=== PATIENT | female | born 1990 | race Caucasian/White ===

== ENCOUNTER → 2019-04-04 | Day surgery (SDC) | payer BC ==
[2019-04-01 11:56] VITALS: BMI 25.8
[2019-04-04 13:21] VITALS: BP 128/71; PULSE 60; RESP 16; TEMP 98.4
== END ==
LOC: ORWHC2ENDO 13:06
PROVIDERS: ATTEND Internal Medicine Gastroenterology
DX: R13.10 Dysphagia, unspecified (principal)
CPT/HCPCS: 91037

== ENCOUNTER → 2021-03-25 | Outpatient (CLI) | payer BC ==
--- NOTE | 2021-03-25 15:43 | FL ---
Fluoroscopic hysterosalpingogram INDICATION: Bicornuate uterus COMPARISON: None The risks, benefits and alternatives were explained to the patient and consent was obtained. Total fl uoroscopic time 31 seconds. FINDINGS: Patient was placed in the lithotomy position on the fluoroscopic table and cervix was visualized with a speculum. The cervix was cleaned with Betadine. Small catheter was inserted through the cervix int o the uterus and a balloon was inflated with air. Speculum was removed. A 5 mL of radiopaque contrast was administered into the catheter. The uterine contour demonstrates focal outpouching at its superior edge due to the catheter tip but i s otherwise unremarkable. The bilateral fallopian tubes filled with contrast with spillage noted bilaterally into the pelvis. The air within the balloon of the catheter was aspirated and the catheter was removed. Patient tolerated the examination well without immediate complication. IMPRESSION: Unremarkable uterine contour. If there is clinical concern for septate uterus, ultrasound or MRI coul d be obtained. Patent fallopian tubes bilaterally.
== END | disposition home or self-care (01) ==
LOC: RADUSWWP 13:29
PROVIDERS: ATTEND Obstetrics & Gynecology Obstetrics
DX: Q51.3 Bicornate uterus (principal)
CPT/HCPCS: 58340; 74740; Q9966

== ENCOUNTER 2022-02-13 01:47 | Inpatient (IN) | payer BC ==
[2022-02-13] MEDS ORDERED: OXYTOCIN 10 UNIT/ML 1 ML VIAL IM PRN (02:15)
[2022-02-13] MEDS ORDERED: LIDOCAINE 0.5% (PF) 5 MG/ML (50 ML SDV) SQ PRN (02:15)
[2022-02-13] MEDS ORDERED: CARBOPROST TROMETHAMINE 250 MCG/ML 1 ML AMP IM PRN (02:15)
[2022-02-13] MEDS ORDERED: OXYTOCIN 30 UNITS/500 ML NS 30 UNIT in SALINE 1 500ML.BAG IV SCH ×2 (02:15→07:15)
[2022-02-13] MEDS ORDERED: TERBUTALINE 1 MG/ML VIAL SQ PRN (02:15)
[2022-02-13] MEDS ORDERED: METHYLERGONOVINE 0.2 MG/ML 1 ML AMP IM PRN (02:15)
[2022-02-13 02:48] LABS: Basophils % (A) 0 %; Eosinophils # (A) 0.2 k/uL (0-0.7); Eosinophils % (A) 3 %; HCT 40.2 % (34.0-46.0); HGB 13.4 gm/dL (11.4-16.0); Lymphocytes # (A) 1.5 k/uL (1.0-4.8); Lymphocytes % (A) 16 %; MCH 30.6 pg (25.0-35.0); MCHC 33.3 g/dL (31.0-37.0); MCV 91.9 fL (80.0-100.0); Mean Platelet Volume 8.2; Monocytes # (A) 0.6 k/uL (0-1.0); Monocytes % (A) 6 %; Neutrophils # (A) 6.9 k/uL (1.3-7.7); Neutrophils % (A) 72 %; Platelet Count 189 k/uL (150-450); RBC 4.37 m/uL (3.80-5.40); RDW 13.2 % (11.5-15.5); WBC 9.5 k/uL (3.8-10.6)
[2022-02-13] MEDS: LACTATED RINGERS 1,000 ML IV SCH ×3 (02:53→19:36)
[2022-02-13] MEDS ORDERED: CITRIC ACID-SODIUM CITRATE 15 ML CUP PO ONE ×2 (05:52→05:53)
[2022-02-13] MEDS ORDERED: OXYTOCIN 30 UNITS/500 ML NS BAG IV ONE (06:07)
[2022-02-13] MEDS ORDERED: MORPHINE SULFATE (PF) 0.3 MG/0.3 ML SYR ONE (06:07)
[2022-02-13] MEDS ORDERED: ONDANSETRON 4 MG/2 ML VIAL ONE (06:07)
--- NOTE | 2022-02-13 07:02 | P.OP ---
Date of Procedure: 02/13/22 Preoperative Diagnosis: IUP at 40 and 0/7 weeks, spontaneous rupture of membranes, active labor, arrest of descent, nonreassuring heart tones Postoperative Diagnosis: same Procedure(s) Performed: primary low transverse section Anesthesia: spinal Surgeon: Angela Stallings Business Ethics Professor #1: Meghna Sherman Estimated Blood Loss (ml): 665 IV fluids (ml): 600 Urine output (ml): 500 Pathology: other (placenta) Condition: stable Disposition: observation Indications for Procedure: 31-year-old at 40-0/7 weeks that progressed to complete dilation and began pushing. Patient has been pushing for approximately 2 hours with no descent. heart tones are noted to be in the 90s with no return to baseline. Exam and heart tones are discussed with the patient in the patient's sign ificant other. Need for primary secondary to nonreassuring heart tones and arrest of descent are discussed. Questions are answered. Patient states understanding and is in agreement with the plan. We'll proceed to operating suite. Anesthesia is notified. Operative Findings: viable male infant delivered at 631, weight of 8 lbs. 11 oz., Apgars of 8 and 9 at one and 5 minutes respectively. Infant noted to be in occiput transverse presentation with significant But appreciated upon delivery. Arcuate-shaped uterus was appreciated with normal tubes and ovaries. Description of Procedure: patient was taken back to the operating suite where spinal anesthesia was found be adequate by the anesthesia department. She was prepped and draped in normal sterile fashion in the dorsal supine position a Pfannenstiel skin incision was made the scalpel and carried through the underlying layer of fascia. The fascia was incised in the midline and extended laterally. The superior aspect the fascial incision was then grasped michael clamps, elevated and underlying rectus muscles dissected off sharply. The inferior aspect of the fascial incision was then grasped michael clamps, elevated and underlying rectus muscles dissected off sharply. Rectus muscles were in the midline the peritoneum was identified and entered. This incision was then extended superiorly and inferiorly with good visualization the bladder. The bladder blade was then inserted into the pelvis. The vesicouterine peritoneum was identified and a bladder flap was created using sharp and blunt dissection. The bladder blade was then reinserted into the pelvis to push the bladder far away from the operating field. A scalpel was used to make a hysterotomy incision the was encountered in a vertex presentation with clear fluid appreciated. The infant was delivered in the usual fashion the umbilical cords CLAMPED and cut and handed off to awaiting RN, spontaneous cry was noted at . The cord blood was then taken. The placenta was delivered manually and the uterus was cleared of all clots and debris. The uterus was delivered from the abdomen, the hysterotomy incision was closed 0 Vicryl in a running locked fashion a second inverting suture was performed. Bleeding was noted on the left-hand side therefore a [id number] suture was used to obtain hemostasis. The uterus was returned to the abdomen and the gutters were cleared of all clots and debris. The hysterotomy incision was inspected found to be hemostatic. The rec tus muscle was inspected and found to be hemostatic. The fascia was then closed with 0 Vicryl in a running fashion from one lateral edge the midline and the other lateral edge the midline. The subcutaneous tissue was noted to be hemostatic and closed with 3-0 Vicryl. The skin was closed with 4-0 Vicryl in a subcu fashion. Steri-Strips and sterile dressings were applied. All counts were noted to be correct 2 at the end of the procedure. Patient and tolerated delivery well and are resting comfortable he.
[2022-02-13] MEDS ORDERED: NALOXONE 0.4 MG/ML 1 ML VIAL IV PRN (07:03)
[2022-02-13] MEDS ORDERED: ZOLPIDEM 5 MG TAB PO PRN (07:03)
[2022-02-13] MEDS ORDERED: SIMETHICONE 80 MG CHEWABLE PO PRN (07:03)
[2022-02-13] MEDS ORDERED: METOCLOPRAMIDE 5 MG/ML 2 ML VIAL IVP PRN (07:03)
[2022-02-13] MEDS ORDERED: diphenhydrAMINE 50 MG/ML 1 ML VIAL IVP PRN ×2 (07:03)
[2022-02-13] MEDS ORDERED: ONDANSETRON 4 MG/2 ML VIAL IVP PRN (07:03)
[2022-02-13] MEDS ORDERED: diphenhydrAMINE 50 MG CAP PO PRN (07:03)
[2022-02-13] MEDS ORDERED: diphenhydrAMINE 25 MG CAP PO PRN (07:03)
--- NOTE | 2022-02-13 07:03 | P.HPOB ---
History of Present Illness H&P Date: 02/13/22 Chief Complaint: IUP @ 40 0/7 weeks, labor, SROM this is a 31-year-old 1 para 0 at 40-3/7 weeks that presents to labor and delivery with complaints of regular painful contractions and spontaneous rupture of membranes. She patient states fluid was clear in nature. she notes good movement. Patient has been receiving routine care which has been essentially and Dated. Patient did have an ultrasound proximal I 3 weeks' revealing an estimated weight of 7 lbs. 12 oz. or 91st percentile. Patient declined induction of labor at 39 weeks given this finding of suspected LGA. on bloodwork this patient is a blood type of O+, rubella status immune, B surface antigen negative, HIV negative, RPR nonreactive, group beta strep culture was negative. Review of Systems Constitutional: Denies chills, Denies fatigue, Denies fever Ears, nose, mouth and throat: Denies headache Cardiovascular: Reports leg edema Respiratory: Denies dyspnea Gastrointestinal: Denies constipation, Denies diarrhea, Denies nausea, Denies vomiting Genitourinary: Reports Past Medical History Past Medical History: Asthma Additional Past Medical History / Comment(s): asthma as child, esophageal spasms, diff swallowing, hx kidney stones History of Any Multi-Drug Resistant Organisms: None Reported Additional Past Surgical History / Comment(s): oral surgery Past Anesthesia/Blood Transfusion Reactions: No Reported Reaction Past Psychological History: Anxiety, Depression Smoking Status: Never smoker Past Alcohol Use History: None Reported Past Drug Use History: None Reported Additional Drug Use History / Comment(s): CBD before - Past Family History Mother Family Medical History: No Reported History Medications and Allergies Home Medications Medication Instructions Recorded Confirmed Type Aspirin 81 mg PO DAILY 02/13/22 02/13/22 History Vit No.179/Iron/Folic 1 each PO DAILY 02/13/22 02/13/22 History [ Tablet] Allergies Allergy/AdvReac Type Severity Reaction Status Date / Time beans Allergy Dyspnea Uncoded 02/13/22 02:10 Exam Osteopathic Statement: *. No significant issues noted on an osteopathic structural exam other than those noted in the History and Physical/Consult. Vital Signs Pulse Resp BP 02/13/22 02:30 58 L 16 141/81 Intake and Output 02/12/22 02/12/22 02/13/22 14:59 22:59 06:59 Other: Weight 93.44 kg targeted physical exam is performed in this date and this a well-nourished well- developed female in no acute distress, breathing is nonlabored, heart has a regular rate and rhythm, abdomen is gravid and large for gestational age, on cervical exam she is 7/100/-1 station with grossly ruptured membranes per RN. heart tones noted to be category 1 and she is interacting every 2 mi nutes. Results Result Diagrams: 02/13/22 02:25 Assessment and Plan (1) Term Current Visit: Yes Status: Acute Code(s): Z34.90 - ENCNTR FOR SUPRVSN OF NORMAL , UNSP, UNSP TRIMESTER SNOMED Code(s): 03918473 (2) SROM (spontaneous rupture of membranes) Current Visit: Yes Status: Acute Code(s): LEI5603 - SNOMED Code(s): 854240088 (3) Active labor Current Visit: Yes Status: Acute Code(s): WPG8254 - SNOMED Code(s): 040891640 Plan: 31-year-old at 40-0/7 weeks presented with complaints of regular painful contractions. Patient was noted to be 7 cm and grossly ruptured. Patient is admitted to labor and delivery with expectant management. Patient declines epidural. We'll continue close monitoring.
[2022-02-13] MEDS: ACETAMINOPHEN IV (For NPO) 1,000 MG in EMPTY BAG 1 BAG IVPB SCH ×2 (10:00→19:38)
[2022-02-13] MEDS: IBUPROFEN 600 MG TAB PO SCH ×3 (19:35→23:29)
[2022-02-13] MEDS: PRENATAL VIT-IRON-FOLIC ACID 1 EACH TABLET PO SCH (19:35)
[2022-02-13] MEDS: ACETAMINOPHEN TAB 500 MG TAB PO SCH ×2 (19:35→19:45)
[2022-02-13] MEDS: IBUPROFEN IV 800 MG in SODIUM CHLORIDE 0.9% 250 ML IV SCH ×2 (19:35→23:58)
[2022-02-13] MEDS: SENNOSIDES-DOCUSATE SODIUM 1 EACH TAB PO SCH ×2 (19:35→19:45)
[2022-02-14] MEDS: IBUPROFEN IV 800 MG in SODIUM CHLORIDE 0.9% 250 ML IV SCH ×3 (03:41→22:08)
[2022-02-14] MEDS: LACTATED RINGERS 1,000 ML IV SCH (03:51)
[2022-02-14] MEDS: ACETAMINOPHEN TAB 500 MG TAB PO SCH ×3 (04:07→22:06)
--- NOTE | 2022-02-14 06:21 | P.PN ---
Progress Note - Text 02/14/22 605am 31-year-old female status post with spinal Duramorph. Patient seen and evaluated for postop pain control, patient has a VAS of 4, patient has been receiving Tylenol and Motrin periodically. Complains of minor pruritus. No other anesthetic concerns noted
[2022-02-14 06:56] LABS: Basophils % (A) 0 %; Eosinophils # (A) 0.1 k/uL (0-0.7); Eosinophils % (A) 1 %; HCT 35.4 % (34.0-46.0); HGB 11.4 gm/dL (11.4-16.0); Lymphocytes % (A) 9 %; MCH 29.9 pg (25.0-35.0); MCHC 32.2 g/dL (31.0-37.0); Mean Platelet Volume 8.2; Monocytes # (A) 0.5 k/uL (0-1.0); Monocytes % (A) 5 %; Neutrophils # (A) 9.1 k/uL (1.3-7.7); Neutrophils % (A) 84 %; Platelet Count 163 k/uL (150-450); RBC 3.81 m/uL (3.80-5.40); RDW 13.1 % (11.5-15.5); WBC 10.8 k/uL (3.8-10.6)
[2022-02-14] MEDS: SENNOSIDES-DOCUSATE SODIUM 1 EACH TAB PO SCH ×2 (08:25→22:06)
[2022-02-14] MEDS: IBUPROFEN 600 MG TAB PO SCH ×4 (08:25→22:05)
--- NOTE | 2022-02-14 10:15 | P.PNOBGPC ---
Subjective - Subjective Principal diagnosis: Postop day 1, primary Interval history: Patient is doing well postoperatively. She is ambulating and voiding without difficulty. She is tolerating a regular diet without nausea or vomiting. She states her pain is well-controlled. Her lochia is minimal. She is breast- feeding without difficulty. Patient reports: Reports appetite normal, Reports voiding normally, Reports pain well controlled, Reports ambulating normally : doing well, nursing well Objective - Vital Signs Latest vital signs: Vital Signs Temp Pulse Resp BP Pulse Ox 02/14/22 04:00 98 F 68 16 110/62 98 02/13/22 23:55 97.9 F 62 16 122/72 100 02/13/22 19:56 97.9 F 82 16 111/65 96 02/13/22 15:17 98.6 F 88 16 96/56 98 02/13/22 12:00 97.0 F L 68 16 96/52 Intake and Output 02/13/22 02/14/22 02/14/22 22:59 06:59 14:59 Output Total 1912 Balance -1912 Output: Urine 1850 Output, Quantitative 62 Blood Loss Other: # Voids 1 - Exam Extremities: Present: normal, edema Abdomen: Present: normal appearance, soft Incision: Present: normal, dry, intact Uterus: Present: normal, firm - Labs Labs: Abnormal Lab Results - Last 24 Hours (Table) 02/14/22 Range/Units 06:16 WBC 10.8 H (3.8-10.6) k/uL Neutrophils # 9.1 H (1.3-7.7) k/uL Assessment and Plan (1) Term Current Visit: Yes Status: Acute Code(s): Z34.90 - ENCNTR FOR SUPRVSN OF NORMAL , UNSP, UNSP TRIMESTER SNOMED Code(s): 36523356 (2) SROM (spontaneous rupture of membranes) Current Visit: Yes Status: Acute Code(s): DPY2596 - SNOMED Code(s): 303867294 (3) Active labor Current Visit: Yes Status: Acute Code(s): [id number] - SNOMED Code(s): 710413956 (4) Arrest of descent, delivered, current hospitalization Current Visit: Yes Status: Acute Code(s): O62.1 - SECONDARY UTERINE INERTIA SNOMED Code(s): 94038366 (5) Non-reassuring status Current Visit: Yes Status: Acute Code(s): QNV0005 - SNOMED Code(s): 003287910 Plan: 31-year-old G1 now P1 status post primary for arrest of descent and nonreassuring heart tones. Patient is doing well postoperatively. We'll continue routine postoperative care and anticipate discharge home tomorrow.
[2022-02-14] MEDS: PRENATAL VIT-IRON-FOLIC ACID 1 EACH TABLET PO SCH (22:08)
[2022-02-15] MEDS: IBUPROFEN 600 MG TAB PO SCH ×3 (05:12→21:16)
[2022-02-15] MEDS: IBUPROFEN IV 800 MG in SODIUM CHLORIDE 0.9% 250 ML IV SCH (05:15)
[2022-02-15] MEDS: ACETAMINOPHEN TAB 500 MG TAB PO SCH (05:15)
[2022-02-15 08:20] VITALS: RESP 14
[2022-02-15] MEDS: SENNOSIDES-DOCUSATE SODIUM 1 EACH TAB PO SCH (09:49)
--- NOTE | 2022-02-15 10:38 | P.DS ---
Providers Date of admission: 02/13/22 01:47 Expected date of discharge: 02/15/22 Attending physician: Angela Stallings Primary care physician: Stated None Hospital Course: This is a 31-year-old female 1 para 0 EDC 02/13/2022 who presented at 40 weeks gestation in active labor from home. remarkable for blood type O positive, rubella status immune, group B strep cultures negative. Please see dictated history and physical for details. Nonreassuring heart tones occurred along with an arrest of dissent. Decision was made for primary low transverse section, she gave to a liveborn male with scores of 9 and 9 at one and 5 minutes respectively. Infant weighed 8 lbs. 11 oz. or 3940 g. There was an estimated blood loss recorded of 400 mL's. Please see dictated operative note for det ails. This morning the patient is doing well. She is voiding, ambulating, passing flatus without difficulty. Vital signs are stable and she is afebrile. Fundus is firm and in the midline, symmetric and 18 week size. Extremities are negative for edema. Incision is clean and dry, intact, Steri-Strips applied. Breasts are not engorged. infant is doing well. Patient is judged be in very good condition for discharge home. She will follow-up in the office with her primary wildlife refuge specialist in 2 weeks. She is reminded no intercourse, tampons or douching. She will use [id number] ibuprofen, Advil or Aleve as needed for pain. I've asked her to call with any fevers shakes or chills, foul smelling or copious lochia, with the passage of large blood clots, with any pain not alleviated by [id number] products, or indeed with any concerns. [place] infant will follow-up with automotive parts counterperson as per recommendations. Assessment: Doing well second postoperative day Patient Condition at Discharge: Good Plan - Discharge Summary Discharge Rx Participant: No New Discharge Prescriptions: No Action Aspirin 81 mg PO DAILY Vit No.179/Iron/Folic [ Tablet] 1 each PO DAILY Discharge Medication List Aspirin 81 mg PO DAILY 02/13/22 [History] Vit No.179/Iron/Folic [ Tablet] 1 each PO DAILY 02/13/22 [History] Follow up Appointment(s)/Referral(s): Angela Stallings DO [Doctor of Osteopathic Medicine] - 2 Weeks Discharge Disposition: HOME SELF-CARE
[2022-02-15 17:07] VITALS: BP 113/68; PULSE 86; TEMP 98.2
== END 2022-02-15 21:30 | disposition home or self-care (01) | DRG 788 ==
LOC: 4FBP 01:47
PROVIDERS: ADMIT Obstetrics & Gynecology Obstetrics; ATTEND Obstetrics & Gynecology Obstetrics
PROC: 10D00Z1 Extraction of Products of Conception, Low, Open Approach (ICD-10-PCS; principal; 2022-02-13 06:27)
DX: O62.1 Secondary uterine inertia (principal); O36.63X0 Maternal care for excessive fetal growth, third trimester, not applicable or unspecified; O76 Abnormality in fetal heart rate and rhythm complicating labor and delivery; O64.0XX0 Obstructed labor due to incomplete rotation of fetal head, not applicable or unspecified; O34.03 Maternal care for unspecified congenital malformation of uterus, third trimester; Q51.810 Arcuate uterus; O99.344 Other mental disorders complicating childbirth; F32.A Depression, unspecified; F41.9 Anxiety disorder, unspecified; O99.52 Diseases of the respiratory system complicating childbirth; J45.909 Unspecified asthma, uncomplicated; Z79.82 Long term (current) use of aspirin; Z3A.40 40 weeks gestation of pregnancy; Z37.0 Single live birth
CPT/HCPCS: 85025; 86803; 86850; 86900; 86901